=== PATIENT | female | born 1990 | race Two or more races ===

== ENCOUNTER 2019-07-20 22:20 | Emergency (ER) | payer OTHER ==
--- NOTE | 2019-07-20 22:55 | ED ---
Laceration/Wound HPI - HPI Summary HPI Summary: 29-year-old female presents with left leg laceration today. She she cut it on the oven door. Has not cleaned area. No active bleeding. Tetanus up-to-date. no numbness or tingling. She is able to ambulate. No foreign body in the wound. - History of Current Complaint Stated Complaint: LACERATION TO LEFT LEG PER PT Time Seen by Provider: 07/20/19 22:30 Pain Intensity: 5 - Allergy/Home Medications Allergies/Adverse Reactions: Allergies Allergy/AdvReac Type Severity Reaction Status Date / Time No Known Allergies Allergy Verified 07/20/19 22:27 Home Medications: Home Medications Ethinyl Estradiol/Drospirenone [Chen 28 Tablet] 1 tab PO DAILY 07/20/19 [ History Confirmed 07/20/19] [place]-3 Fatty Acids/Fish Oil [Fish Oil 1,000 mg Softgel] 1 tab PO DAILY [History Confirmed 07/20/19] PMH/Surg Hx/FS Hx/Imm Hx Endocrine/Hematology History: Denies: Hx Anticoagulant Therapy Respiratory History: Denies: Hx Asthma Infectious Disease History: No Infectious Disease History: Reports: Traveled Outside the [place] in Last 30 Days - Pt is from [place] - Family History Known Family History: Positive: Non-Contributory - Social History Substance Use Type: Reports: None Smoking Status (MU): Never Smoked Tobacco Review of Systems Negative: Fever Negative: Chest Pain Negative: Shortness Of Breath Positive: Other - left laceration garay All Other Systems Reviewed And Are Negative: Yes Physical Exam Triage Information Reviewed: Yes Vital Signs On Initial Exam: Initial Vitals Temp Pulse Resp BP Pulse Ox 98.4 F 81 18 144/87 100 07/20/19 22:22 07/20/19 22:22 07/20/19 22:22 07/20/19 22:22 07/20/19 22:22 Vital Signs Reviewed: Yes Appearance: Positive: Well-Appearing Skin: Positive: Warm, Dry, Other - 2cm superifical laceration to left garay Head/Face: Positive: Normal Head/Face Inspection Eyes: Positive: Normal, Conjunctiva Clear ENT: Positive: Pharynx normal Respiratory/Lung Sounds: Positive: Clear to Auscultation, Breath Sounds Present Cardiovascular: Positive: Normal, RRR Musculoskeletal: Positive: Normal Psychiatric: Positive: Normal Diagnostics - Vital Signs Vital Signs Temp Pulse Resp BP Pulse Ox 07/20/19 22:22 98.4 F 81 18 144/87 100 - Laboratory Lab Statement: Any lab studies that have been ordered have been reviewed, and results considered in the medical decision making process. Laceration Repair Course/Dx - Course Course Of Treatment: 29-year-old female presents with left leg laceration today. She she cut it on the oven door. Has not cleaned area. No active bleeding. Tetanus up-to-date. no numbness or tingling. She is able to ambulate. No foreign body in the wound. On exam has 2cm superficial laceration to left garay. clean the area. offered to apply glue and Patient declined. Told to keep very clean and apply Neosporin. Patient understands agrees plan. - Differential Dx Differental Diagnoses: Abrasion, Avulsion, Laceration - Clinical Impression Provider Diagnoses: Laceration of left leg Discharge ED - Sign-Out/Discharge Documenting (check all that apply): Patient Departure Patient Received Moderate/Deep Sedation with Procedure: No - Discharge Plan Condition: Good Disposition: HOME Patient Education Materials: Acute Wound Care (ED) Referrals: [facility] [Z.BUSINESS, APPLICATION, OTHER] - Additional Instructions: wash area with soap and water twice a day apply neosporin, cover with bandage Return to ED if develop any spreading redness or any new or worsening symptoms - Billing Disposition and Condition Condition: GOOD Disposition: Home
[2019-07-20 23:25] VITALS: BP 114/83
== END 2019-07-20 23:21 | disposition home or self-care (01) ==
LOC: ED 22:20
DX: S81.812A Laceration without foreign body, left lower leg, initial encounter (principal); W26.8XXA Contact with other sharp object(s), not elsewhere classified, initial encounter; Y92.9 Unspecified place or not applicable
CPT/HCPCS: 99281